=== PATIENT | female | born 1985 | race African-American/Black ===

== ENCOUNTER 2017-09-15 18:00 | Observation (INO) | payer OTHER ==
[2017-09-15] MEDS ORDERED: NS 0.9% 1000 ML* 1,000 ML IV SCH (18:30)
[2017-09-15 18:51] LABS: ABS Basophils 0 10^3/ul (0-0.2); ABS Eosinophils 0.4 10^3/ul (0-0.6); ABS Lymphocytes 1.5 10^3/ul (1.0-4.8); ABS Monocytes 0.3 10^3/ul (0-0.8); ABS Neutrophils 8.4 10^3/ul (1.5-7.7); ABS Nucleated RBC 0.01 10^3/ul; Eosinophil % 3.4 % (0-6); Hematocrit 42 % (35-47); Hemoglobin 13.6 g/dl (12.0-16.0); Lymphocyte % 13.9 % (25-47); Mean Corpuscular HGB Conc 33 g/dl (31-36); Mean Corpuscular Hemoglobin 26 pg (27-31); Mean Corpuscular Volume 80 fL (80-97); Mean Platelet Volume 9 um3 (7.4-10.4); Nucleated Red Blood Cells % 0.1; Platelet Count 216 10^3/ul (150-450); Red Blood Count 5.22 10^6/ul (4.0-5.4); Red Cell Distribution Width 15 % (10.5-15); White Blood Count 10.6 10^3/ul (3.5-10.8)
[2017-09-15 19:00] LABS: EGFR Non-African American 109.7 (>60)
[2017-09-15 19:05] LABS: INR 0.8 (0.77-1.02)
[2017-09-15] MEDS ORDERED: diPHENhydraMINE IV* 50 MG/ML 1 ml VIAL (BENADRYL) IV ONE (19:23)
[2017-09-15] MEDS ORDERED: Butalb/Acetamin/Caff TAB* 1 TAB PO ONE (19:24)
[2017-09-15] MEDS ORDERED: Metoclopramide IV* 5 MG/ML 2 ML VIAL IV SLOW PU ONE (19:24)
--- NOTE | 2017-09-15 21:23 | RAD ---
HISTORY: Headache COMPARISONS: None TECHNIQUE: Multiple contiguous axial CT scans were obtained of the head without intravenous contrast. FINDINGS: HEMORRHAGE/INFARCT: There is no hemorrhage or acute infarct. MASSES/SHIFT: There is no mass or shift. EXTRA-AXIAL SPACES: There are no extra-axial fluid collections. SULCI AND VENTRICLES: The sulci and ventricles are normal in size and position for the patient's stated age. CEREBRUM: There are no focal parenchymal abnormalities. BRAINSTEM: There are no focal parenchymal abnormalities. CEREBELLUM: There are no focal parenchymal abnormalities. VESSELS: The vessels are grossly normal. PARANASAL SINUSES: The paranasal sinuses are clear. ORBITS: The orbits are unremarkable. BONES AND SOFT TISSUE: No bone or soft tissue abnormalities are noted. OTHER: None IMPRESSION: NO ACUTE INTRACRANIAL PATHOLOGY.
--- NOTE | 2017-09-15 21:26 | RAD ---
HISTORY: Neck pain, tingling COMPARISONS: None TECHNIQUE: Multiple contiguous axial CT scans were obtained of the cervical spine without intravenous contrast, with coronal and sagittal multiplanar reformations. FINDINGS: BRAIN: The visualized brain is unremarkable CENTRAL CANAL: Evaluation of the central canal is limited on CT technique; however, there is no obvious canalicular mass or epidural hemorrhage. There is low-attenuation, approximately -300 heterogeneous, that appears to be intradural, extramedullary opposite of C2. ALIGNMENT: There is straightening of the cervical lordosis. VERTEBRAL BODIES: The odontoid process is intact. The atlantoaxial intervals are symmetric. The vertebral bodies are normal in attenuation, without fracture. JOINTS: There is no subluxation or dislocation. MUSCULATURE: Unremarkable INTERVERTEBRAL DISCS: The intervertebral discs are relatively preserved in height. AXIAL IMAGES: C2-C3: There is no osseous neural foraminal narrowing or central canal stenosis. C3-C4: There is no osseous neural foraminal narrowing or central canal stenosis. C4-C5: There is no osseous neural foraminal narrowing or central canal stenosis. C5-C6: There is no osseous neural foraminal narrowing or central canal stenosis. C6-C7: There is no osseous neural foraminal narrowing or central canal stenosis. C7-T1: There is no osseous neural foraminal narrowing or central canal stenosis. SOFT TISSUES: The visualized soft tissues of the neck are unremarkable. The prevertebral fat stripe is preserved. OTHER: None. IMPRESSION: STRAIGHTENING OF THE CERVICAL LORDOSIS. NO OSSEOUS NEURAL FORAMINAL NARROWING OR CENTRAL CANAL STENOSIS. SMALL AMOUNT OF INTRADURAL, EXTRA MEDULLARY LOW-ATTENUATION OPPOSITE OF C2 WHICH MAY REPRESENT A SMALL DURAL LIPOMA VERSUS A SMALL AMOUNT OF EPIDURAL GAS GIVEN THE HISTORY OF RECENT EPIDURAL INSTRUMENTATION.
--- NOTE | 2017-09-15 22:43 | HP ---
H&P (Free Text) History and Physical: Mrs Rausch is a 31F 2days post-vaginal delivery w/ epidural presenting with severe headache. Work up is negative. Suspect epidural etiology. Anesthesia evaluated in AM & opted not to perform a blood patch, but will reconsider in AM.
[2017-09-15] MEDS ORDERED: oxyCODONE/Acetamin 5/325 MG* TAB PO PRN ×2 (22:47)
[2017-09-15] MEDS ORDERED: Ondansetron INJ* 2 MG/ML VIAL IV PRN (22:47)
[2017-09-15] MEDS ORDERED: Metoclopramide IV* 5 MG/ML 2 ML VIAL IV SLOW PU PRN (22:50)
[2017-09-15] MEDS ORDERED: Ketorolac INJ* 30 MG/ML 1 ML VIAL IV PUSH ONE (22:51)
[2017-09-15] MEDS ORDERED: Ketorolac INJ* 30 MG/ML 1 ML VIAL IV PUSH PRN (22:51)
--- NOTE | 2017-09-15 23:05 | ED ---
Mata Oconnell Tiffany, scribed for Ric Jerry on 09/15/17 at 1923 . Headache - HPI Summary HPI Summary: This patient is a 31 year old F [facility] accompanied by male with a chief complaint of headache since two days ago. The patient rates the pain 10/10 in severity. Symptoms aggravated by nothing. Symptoms alleviated by nothing. Patient reports neck pain and fever. Patient denies nausea. The patient gave three days ago in [place], [place], during which she received an epidural. There were no complications during . - History Of Current Complaint Chief Complaint: EDHeadache Stated Complaint: NECK/BACK PAIN Time Seen by Provider: 09/15/17 19:10 Hx Obtained From: Patient Onset/Duration: Started days ago - Two days, Still Present Currently Pain Is: Severe Aggravating Factor: Nothing Allevating Factors: Nothing Associated Signs And Symptoms: Negative - Nausea, Fever, Neck Pain - Allergies/Home Medications Allergies/Adverse Reactions: Allergies Allergy/AdvReac Type Severity Reaction Status Date / Time No Known Allergies Allergy Verified 09/15/17 18:10 Home Medications: Home Medications Iron 1 tab PO DAILY 09/15/17 [History Confirmed 09/15/17] Vitamin TAB* 1 tab PO DAILY 09/15/17 [History Confirmed 09/15/17] Stool Softener 1 tab PO DAILY 09/15/17 [History Confirmed 09/15/17] PMH/Surg Hx/FS Hx/Imm Hx Previously Healthy: No Infectious Disease History: No Infectious Disease History: Denies: Traveled Outside the [place] in Last 30 Days - Social History Alcohol Use: None Hx Substance Use: No Substance Use Type: Reports: None Hx Tobacco Use: No Smoking Status (MU): Never Smoked Tobacco Review of Systems Positive: Fever Negative: Nausea Positive: Other - Neck pain Positive: Headache All Other Systems Reviewed And Are Negative: Yes Physical Exam - Summary Physical Exam Summary: Appearance: Well appearing, no pain distress Skin: warm, dry, reflects adequate perfusion Head/face: normal Eyes: EOMI, CYNTHIA ENT: normal Neck: supple, non-tender Respiratory: CTA, breath sounds present Cardiovascular: RRR, pulses symmetrical Abdomen: non-tender, soft Bowel: present Musculoskeletal: normal, strength/ROM intact Neuro: normal, sensory motor intact, A&Ox3 Triage Information Reviewed: Yes Vital Signs On Initial Exam: Initial Vitals Temp Pulse Resp BP Pulse Ox 97.7 F 89 16 107/62 99 09/15/17 18:07 09/15/17 18:07 09/15/17 18:07 09/15/17 18:07 09/15/17 18:07 Vital Signs Reviewed: Yes - Hernandez Coma Scale Coma Scale Total: 15 Diagnostics - Vital Signs Vital Signs Temp Pulse Resp BP Pulse Ox 09/15/17 18:45 77 21 100/68 100 09/15/17 18:20 81 99 09/15/17 18:18 89/54 09/15/17 18:07 97.7 F 89 16 107/62 99 - Laboratory Lab Results: Lab Results 09/15/17 09/15/17 09/15/17 Range/Units 18:32 18:32 18:32 WBC 10.6 (3.5-10.8) 10^3/ul RBC 5.22 (4.0-5.4) 10^6/ul Hgb 13.6 (12.0-16.0) g/dl Hct 42 (35-47) % MCV 80 (80-97) fL MCH 26 L (27-31) pg MCHC 33 (31-36) g/dl RDW 15 (10.5-15) % Plt Count 216 (150-450) 10^3/ul MPV 9 (7.4-10.4) um3 Neut % (Auto) 79.5 (38-83) % Lymph % (Auto) 13.9 L (25-47) % Socorro % (Auto) 2.8 (1-9) % Eos % (Auto) 3.4 (0-6) % Baso % (Auto) 0.4 (0-2) % Absolute Neuts (auto) 8.4 H (1.5-7.7) 10^3/ul Absolute Lymphs (auto) 1.5 (1.0-4.8) 10^3/ul Absolute Monos (auto) 0.3 (0-0.8) 10^3/ul Absolute Eos (auto) 0.4 (0-0.6) 10^3/ul Absolute Basos (auto) 0 (0-0.2) 10^3/ul Absolute Nucleated RBC 0.01 10^3/ul Nucleated RBC % 0.1 INR (Anticoag Therapy) 0.80 (0.77-1.02) APTT 24.2 L (26.0-36.3) seconds Sodium 136 (133-145) mmol/L Potassium 3.5 (3.5-5.0) mmol/L Chloride 105 (101-111) mmol/L Carbon Dioxide 25 (22-32) mmol/L Anion Gap 6 (2-11) mmol/L BUN 11 (6-24) mg/dL Creatinine 0.64 (0.51-0.95) mg/dL Est GFR ( Amer) 141.1 (>60) Est GFR (Non-Af Amer) 109.7 (>60) BUN/Creatinine Ratio 17.2 (8-20) Glucose 93 (70-100) mg/dL Lactic Acid (0.5-2.0) mmol/L Calcium 8.9 (8.6-10.3) mg/dL Total Bilirubin 0.80 (0.2-1.0) mg/dL AST 85 H (13-39) U/L ALT 105 H (7-52) U/L Alkaline Phosphatase 120 H (34-104) U/L C-Reactive Protein 72.47 H (< 5.00) mg/L Total Protein 6.7 (6.4-8.9) g/dL Albumin 3.3 (3.2-5.2) g/dL Globulin 3.4 (2-4) g/dL Albumin/Globulin Ratio 1.0 (1-3) //17 Range/Units 18:32 WBC (3.5-10.8) 10^3/ul RBC (4.0-5.4) 10^6/ul Hgb (12.0-16.0) g/dl Hct (35-47) % MCV (80-97) fL MCH (27-31) pg MCHC (31-36) g/dl RDW (10.5-15) % Plt Count (150-450) 10^3/ul MPV (7.4-10.4) um3 Neut % (Auto) (38-83) % Lymph % (Auto) (25-47) % Socorro % (Auto) (1-9) % Eos % (Auto) (0-6) % Baso % (Auto) (0-2) % Absolute Neuts (auto) (1.5-7.7) 10^3/ul Absolute Lymphs (auto) (1.0-4.8) 10^3/ul Absolute Monos (auto) (0-0.8) 10^3/ul Absolute Eos (auto) (0-0.6) 10^3/ul Absolute Basos (auto) (0-0.2) 10^3/ul Absolute Nucleated RBC 10^3/ul Nucleated RBC % INR (Anticoag Therapy) (0.77-1.02) APTT (26.0-36.3) seconds Sodium (133-145) mmol/L Potassium (3.5-5.0) mmol/L Chloride (101-111) mmol/L Carbon Dioxide (22-32) mmol/L Anion Gap (2-11) mmol/L BUN (6-24) mg/dL Creatinine (0.51-0.95) mg/dL Est GFR ( Amer) (>60) Est GFR (Non-Af Amer) (>60) BUN/Creatinine Ratio (8-20) Glucose (70-100) mg/dL Lactic Acid 0.8 (0.5-2.0) mmol/L Calcium (8.6-10.3) mg/dL Total Bilirubin (0.2-1.0) mg/dL AST (13-39) U/L ALT (7-52) U/L Alkaline Phosphatase (34-104) U/L C-Reactive Protein (< 5.00) mg/L Total Protein (6.4-8.9) g/dL Albumin (3.2-5.2) g/dL Globulin (2-4) g/dL Albumin/Globulin Ratio (1-3) Result Diagrams: 09/15/17 18:32 09/15/17 18:32 Lab Statement: Any lab studies that have been ordered have been reviewed, and results considered in the medical decision making process. - CT Spine CT Interpretation Completed By: Radiologist - STRAIGHTENING OF THE CERVICAL LORDOSIS. NO OSSEOUS NEURAL FORAMINAL NARROWING OR CENTRAL CANAL STENOSIS. SMALL AMOUNT OF INTRADURAL, EXTRA MEDULLARY LOW-ATTENUATION OPPOSITE OF C2 WHICH MAY REPRESENT A SMALL DURAL LIPOMA VERSUS A SMALL AMOUNT OF EPIDURAL GAS GIVEN THE HISTORY OF RECENT EPIDURAL INSTRUMENTATION. ED physician has reviewed this radiology report. Brain CT Interpretation Completed By: Radiologist - NO ACUTE INTRACRANIAL PATHOLOGY. ED physician has reviewed this radiology report. Re-Evaluation - Re-Evaluation First Eval Re-Evaluation Time: 21:37 Change: Unchanged Comment: The patient says her neck still hurts. We discussed admission plan. Patient is agreeable. Headache Course/Dx - Course Course Of Treatment: This patient is a 31 year old F [facility] accompanied by male with a chief complaint of headache since two days ago. The patient gave three days ago in [place], [place], during which she received an epidural. CT Brain reveals, per radiologist, NO ACUTE INTRACRANIAL PATHOLOGY. CT Spine reveals, per radiologist, STRAIGHTENING OF THE CERVICAL LORDOSIS. NO OSSEOUS NEURAL FORAMINAL NARROWING OR CENTRAL CANAL STENOSIS. SMALL AMOUNT OF INTRADURAL , EXTRA MEDULLARY LOW-ATTENUATION OPPOSITE OF C2 WHICH MAY REPRESENT A SMALL DURAL LIPOMA VERSUS A SMALL AMOUNT OF EPIDURAL GAS GIVEN THE HISTORY OF RECENT EPIDURAL INSTRUMENTATION. In the ED course the patient was given Fioricet, Benadryl and Reglan. We discussed patient care with Dr. Carver (anesthesiology) who said that he will see the patient. Patient will be admitted to Dr. Thomson, hospitalist. The patient is agreeable with this plan. - Diagnoses Differential Diagnosis/HQI/PQRI: Epidural Hematoma, Migraine, Sinus Headache, Tension Headache Provider Diagnoses: Headache, Epidural anesthesia-induced headache during labor and delivery - Physician Notifications Discussed Care Of Patient With: Danis Carver Time Discussed With Above Provider: 19:49 Instructed by Provider To: Other - Dr. Carver (anesthesiology) said that he will come see the patient. At 22:03, I consulted with Dr. Thomson (hospitalist) who agreed to admit the patient. Discharge - Discharge Plan Condition: Fair Disposition: ADMITTED TO [facility] Patient Education Materials: General Headache (ED) Referrals: Forrest Acharya MD [Primary Care Provider] - 3 Days The documentation as recorded by the Mata jorgensen Tiffany accurately reflects the service I personally performed and the decisions made by me, Ric Jerry.
[2017-09-15] MEDS ORDERED: Docusate CAP* 100 MG PO PRN (23:38)
--- NOTE | 2017-09-16 03:02 | HP ---
CC: Dr. Forrest Acharya * MEDICINE HISTORY AND PHYSICAL: DATE OF ADMISSION: 09/15/17 PROVIDER: Courtney Pickering NP ATTENDING PHYSICIAN: Dr. Yandel Thomson * (as dictated by Courtney Pickering NP ) CONSULTING PHYSICIAN: Dr. Carver, Anesthesiology. PRIMARY CARE PROVIDER: Dr. Acharya. CHIEF COMPLAINT: Headache. HISTORY OF PRESENT ILLNESS: Mr. Rausch is a 31-year-old female, who was after delivering at [facility] on 09/12/17. Per the patient and her , the patient went on to labor and delivered at [facility] where she was followed during the course of her . She delivered on , and on 09/13/17, developed a headache with concern for paresthesias. The patient reports that she had some arm numbness as well as ear ringing and facial numbness. She was apparently seen by Neurology at the hospital and recommended to have a blood patch at that time but she had declined with the hope that this will resolve on its own. The patient was eager to go home. Since she has been home, she reports persistent headache that is unrelieved by Percocet. The Percocet actually makes her nauseous and she is also feeling dizzy. She states that the nausea is likely due to the fact that she has not been able to eat anything and so she has been treating her pain with oral medication such as ibuprofen and Percocet and compounding her nausea due to her empty stomach. She still endorses bilateral leg numbness that started with her epidural. She is able to walk. Her headache is persistent and she also endorses neck pain and subjective fevers at home. She does note that she has chronic neck pain in the C4-C5 region, as she says it is secondary to degenerative disk disease. During my evaluation, the patient is lying flat at about 30 degrees, which says is most comfortable for her. She is currently attempting to breastfeed, although she has been unable to do that this evening secondary to being here in the hospital. She does not have a breast pump with her. In the ER, her CBC is unremarkable. She does have some elevated LFTs noted as well as an elevated CRP. The patient had a consult by Anesthesiology at the request of ER physician. Dr. Carver did come to see the patient and recommended a potential blood patch, which could be done tomorrow if the patient is still here. He is also planning to follow up with the patient as an outpatient if she decided to go home. However, given the patient's condition and persistent headache and symptoms, she is opting to stay here in the ED. PAST MEDICAL HISTORY: 1. Recent vaginal delivery. She is 2 para 2 with most recent vaginal delivery on 09/12/17. 2. History of lumbar and cervical radiculopathy per her primary care notes. 3. History of brachial neuritis. 4. History of pain in shoulder and upper arm. 5. Injury of shoulder region. HOME MEDICATIONS: Include: 1. Iron 1 tab daily. 2. vitamin 1 tab daily. 3. Stool softener 1 tab daily. ALLERGIES: No known allergies. FAMILY HISTORY: Reviewed and noncontributory. SOCIAL HISTORY: The patient is . She lives at home with her children. She denies tobacco use, alcohol use, and illicit drug use. Her , Eliud Bucio, is her surrogate decision maker and healthcare proxy. REVIEW OF SYSTEMS: A 12-point review of systems was completed. All pertinent positives and negatives are included in the HPI. All those not mentioned are negative. PHYSICAL EXAMINATION GENERAL APPEARANCE: This is a well-developed female, who appears her stated age , who is lying in the ED stretcher. She appears to be in [id number] distress as evidenced by grimacing. VITAL SIGNS: Temperature 98.4, pulse rate 64, respiratory rate 18, blood pressure 109/71, O2 saturation 100% on room air. HEENT: Head is atraumatic, normocephalic. Face is symmetrical. Pupils are equal, round, and reactive to light. Extraocular movements are intact. Oral mucosa appears moist. There is no oropharyngeal erythema or exudate. NECK: Supple, nontender. The patient has full range of motion through neck. No lymphadenopathy appreciated. LUNGS: Clear to auscultation bilaterally. No accessory muscle use noted. CARDIAC: S1, S2, heart sounds, regular rate and rhythm, no murmurs, rubs, or gallops. The patient has some mild pretibial edema that is trace bilaterally. Distal pulses are 2+ and intact. ABDOMEN: Soft, nontender, nondistended with normoactive bowel sounds. MUSCULOSKELETAL: No clubbing or cyanosis. The patient is able to move all extremities. NEURO: Strength is 5/5 in the upper and lower extremities. No focal deficits noted. Speech is clear. Sensation is intact to light touch to the lower extremities. PSYCH: She is alert and oriented x3. No evidence of anxiety, depression. DIAGNOSTIC STUDIES/LAB DATA: CBC: WBC 10.6, hemoglobin 13.6, hematocrit 42, platelet count 216. PTT 24.2. CMP: Sodium 136, potassium 3.5, chloride 105, carbon dioxide 25, BUN 11, creatinine 0.64, glucose 93, lactic acid 0.8, calcium 8.9. AST 85, ALT 105, alk phos 120. CRP 72.47. Albumin 3.3. CT of the brain showed no acute pathology. CT of the cervical spine shows straightening of the cervical lordosis. No osseous neural foraminal narrowing or central canal stenosis. Small amount of intradural extramedullary low attenuation which may represent a small dural lipoma versus a small amount of epidural gas given the history of recent epidural instrumentation. Old medical records were reviewed. ASSESSMENT AND PLAN: This is a 31-year-old female, who presents today with concern for postdural puncture headache following epidural for recent vaginal delivery. She will be admitted under observation to the medicine floor. Plan is as follows: 1. Postdural puncture headache. Anesthesiology is aware of the patient, has already seen the patient and plans to follow up the patient per the note tomorrow. Plan to have hospital medicine team talk with Anesthesiology in the morning to see if a blood patch will be possible. It appears at this point in time that would be the most likely solution to the patient's head pain. Given that she is and would like to continue , I am hesitant give her heavy narcotics. However, we did discuss that if the need arises to utilize narcotics, so she can continue to pump and then discard the milk if she is pumping shortly after receiving narcotic medication in order to avoid passing the medication to the baby via the breast milk. The patient is in agreement currently to try some Toradol, which I did look up for and note that it is safe for use in . I will continue her on her home Percocet. The patient is attempting to eat some food at this time, which would likely help with her symptoms of nausea following use of the Percocet. She did receive Fioricet, Reglan, and Benadryl here in the ED with little effect. We can continue extra strength Tylenol and I will continue her on metoclopramide and Zofran for nausea, again both of which have been checked against guidelines and have been noted to be safe to use during and . I suspect that the blood patch is likely the most necessary fix for the patient's symptoms at this time. 2. Transaminitis. This may be secondary to recent . Plan to recheck her LFTs tomorrow. We could certainly consider liver ultrasound if the patient shows worsening liver function. At this point in time, she has no hepatomegaly , no jaundice, and no other concerns for liver disease and denies any exposures. We will continue to monitor. 3. with recent delivery on 09/12/17. I did discuss with the patient that if she chooses to breastfeed that she needs to be cognizant of the medications that she is receiving in the hospital and with the help of nursing needs to determine if it is safe to breastfeed if she does take medication that is unsafe for a . Currently, the patient is not ordered any IV narcotics but I did tell her that it will be available should she desire to try IV narcotic medications such as morphine or hydromorphone. At this point in time, we have agreed to hold on these medications that should she take that, the patient is aware that she will need to be cognizant of times until she appropriately excretes the medication from her system. I have also touched base with the maternal-baby unit and they are providing a breast pump for the patient to use while she is here in the hospital. 4. History of cervical and lumbar radiculopathy. The patient has been complaining of paresthesias off and on, which may be secondary to her chronic issues. It is difficult to tease this out at this time. Surely, the blood patch may be helpful and see if this alleviates her symptoms. The patient does admit to having cervical spine issues and pain chronically with some radiculopathy, so some of her previous complaints are being more consistent with her lack of mobility secondary to headache as well as chronic back issues. She should continue outpatient followup with her spinal doctor. 5. FEN. The patient is ordered regular diet and IV fluids. She should continue on her supplementation which includes vitamin, iron. 6. DVT prophylaxis. The patient is ordered SCDs and ERIC hose. We will avoid any anticoagulants in anticipation of needing a blood patch. 7. Code status. The patient is a full code. TIME SPENT: Approximately 60 minutes was spent on this admission with more than half the time spent [id number] with the patient obtaining history and physical, performing physical examination, and reviewing the plan of care. Plan of care was also reviewed with my attending, Dr. Thomson, who is in agreement. COURTNEY PICKERING, [employer] [id number]/CPS #: [id number] ALEKSANDAR
[2017-09-16] MEDS: Acetaminophen TAB* 325 MG PO PRN ×2 (04:02→12:04)
[2017-09-16 05:34] LABS: ABS Basophils 0 10^3/ul (0-0.2); ABS Eosinophils 0.4 10^3/ul (0-0.6); ABS Lymphocytes 1.9 10^3/ul (1.0-4.8); ABS Monocytes 0.4 10^3/ul (0-0.8); ABS Neutrophils 5.1 10^3/ul (1.5-7.7); ABS Nucleated RBC 0.01 10^3/ul; Eosinophil % 4.6 % (0-6); Hematocrit 38 % (35-47); Hemoglobin 12.7 g/dl (12.0-16.0); Lymphocyte % 24.4 % (25-47); Mean Corpuscular HGB Conc 33 g/dl (31-36); Mean Corpuscular Hemoglobin 27 pg (27-31); Mean Corpuscular Volume 80 fL (80-97); Mean Platelet Volume 9 um3 (7.4-10.4); Nucleated Red Blood Cells % 0.1; Platelet Count 209 10^3/ul (150-450); Red Blood Count 4.79 10^6/ul (4.0-5.4); Red Cell Distribution Width 15 % (10.5-15); White Blood Count 7.8 10^3/ul (3.5-10.8)
[2017-09-16 05:55] LABS: EGFR Non-African American 111.7 (>60)
--- NOTE | 2017-09-16 08:37 | PN ---
Subjective Date of Service: 09/16/17 Interval History: Patient seen and examined at bedside. Denies fever, chills, shortness of breath , chest discomfort, N/V/D. Pt states that she was having fevers and chills yesterday, but they have resolved. Pt reports posterior neck pain, that is worse than her baseline. She is able to move her head without difficulty while laying down, but reports it is painful when sitting up. She describes her headache as radiating from her neck up to her head. She declined a blood patch at [facility] because she wanted to go home. She would like to avoid IV pain medications because she is . Family History: Unchanged from Admission Social History: Unchanged from Admission Past Medical History: Unchanged from Admission Objective Active Medications: Acetaminophen (Tylenol Tab*) 975 mg PO Q8H PRN Reason: FEVER/PAIN Docusate Sodium (Colace Cap*) 100 mg PO BID PRN Reason: CONSTIPATION Ferrous Sulfate (Ferrous Sulfate Tab*) 325 mg PO DAILY MAEVE Lactated Ringer's (Lactated Ringers 1000 Ml Bag*) 1,000 mls @ 100 mls/hr IV PER RATE MAEVE Metoclopramide HCl (Reglan Iv*) 10 mg IV SLOW PU Q6H PRN Reason: NAUSEA/ VOMITING Multivitamins ( Vitamin Tab*) 1 tab PO DAILY MAEVE Oxycodone/Acetaminophen (Percocet 5/325 Tab*) 1 tab PO Q4H PRN Reason: PAIN - MILD TO MODERATE Oxycodone/Acetaminophen (Percocet 5/325 Tab*) 2 tab PO Q4H PRN Reason: PAIN - MODERATE TO SEVERE Vital Signs - 8 hr 09/16/17 09/16/17 09/16/17 03:12 07:40 08:00 Temperature 98.3 F 97.6 F Pulse Rate 63 60 Respiratory 16 16 16 Rate Blood Pressure 98/50 92/52 (mmHg) O2 Sat by Pulse 100 98 Oximetry Oxygen Devices in Use Now: None Appearance: NAD, laying in bed Ears/Nose/Mouth/Throat: Mucous Membranes Moist Neck: NL Appearance and Movements; NL JVP Respiratory: Symmetrical Chest Expansion and Respiratory Effort, Clear to Auscultation Cardiovascular: NL Sounds; No Murmurs; No JVD, RRR Abdominal: NL Sounds; No Tenderness; No Distention Extremities: No Edema Skin: No Rash or Ulcers Neurological: Alert and Oriented x 3, NL Muscle Strength and Tone Lines/Tubes/Other Access: Clean, Dry and Intact Peripheral IV - site benign Nutrition: Taking PO's Result Diagrams: 09/16/17 05:22 09/16/17 05:22 Additional Lab and Data: Assess/Plan/Problems-Billing Assessment: Ms. Rausch is a 31 yo female with PMH significant for lumbar and cervical radiculopathy, brachial neuritis, vaginal delivery 09/12 who presented to the emergency room with complaints of a headache. - Patient Problems (1) Headache Code(s): R51 - HEADACHE SNOMED Code(s): 50636359 Comment: - Suspect secondary to recent epidural - Anesthesia will see Pt later today for possible blood patch - Continue pain management (2) Transaminitis Code(s): R74.0 - NONSPEC ELEV OF LEVELS OF TRANSAMNS & LACTIC ACID DEHYDRGNSE SNOMED Code(s): 540144891 Comment: - Improving, suspect secondary to (3) Mother currently breast-feeding Code(s): FEX5298 - SNOMED Code(s): 067524362 Comment: - Monitor medications for compatability with (4) Radiculopathy Code(s): M54.10 - RADICULOPATHY, SITE UNSPECIFIED SNOMED Code(s): 44410666 (5) DVT prophylaxis Code(s): KTH7604 - SNOMED Code(s): 094620236 (6) Full code status Code(s): Z78.9 - OTHER SPECIFIED HEALTH STATUS SNOMED Code(s): 104538153 Status and Disposition: OBV. Discharge to home when medically stable.
[2017-09-16] MEDS ORDERED: Ferrous Sulfate TAB* 325 MG PO SCH (09:00)
[2017-09-16] MEDS ORDERED: Prenatal Vitamin TAB PO SCH (09:00)
[2017-09-16 12:18] VITALS: BP 90/60
--- NOTE | 2017-09-17 10:18 | DS ---
CC: Dr. Forrest Acharya * DISCHARGE SUMMARY: DATE OF ADMISSION: 09/15/17 DATE OF DISCHARGE: 09/16/17 ATTENDING PHYSICIAN: Dr. Rajiv Quintana * (dictated by Indira Vizcarra NP). PRIMARY CARE PROVIDER: Dr. Forrest Acharya. PRIMARY DIAGNOSES: 1. Postdural puncture headache. 2. Transaminitis. 3. with vaginal delivery on 09/12/17. SECONDARY DIAGNOSIS: Cervical and lumbar radiculopathy. CONSULTATIONS WHILE IN THE HOSPITAL: Dr. Carver and Dr. Esteban with Anesthesiology. STUDIES WHILE IN THE HOSPITAL: 1. Brain CT on 09/15/17. Radiologist impression: No acute intracranial pathology. 2. Cervical spine CT on 09/15/17. Radiologist impression: Straightening of the cervical lordosis. No osseous neural foraminal narrowing or central canal stenosis. Small amount of intradural extra medullary low attenuation opposite of C2, which may represent a small dural lipoma versus a small amount of epidural gas given the history of recent epidural instrumentation. PROCEDURES WHILE IN THE HOSPITAL: Status post blood patch by Dr. Esteban on . DISCHARGE MEDICATIONS: Continued home medications: 1. Colace 100 mg oral daily. 2. vitamin 1 tablet oral daily. 3. Iron 1 tablet oral daily. HISTORY OF PRESENT ILLNESS: Ms. Rausch is a 31-year-old female with past medical history significant for lumbar and cervical radiculopathy, brachial neuritis, pain in her shoulder and upper arm and recent vaginal delivery on 09/12/17, who presented to the hospital with complaints of a headache. The patient states on 09/13/17 she developed a headache with concern for paresthesias. She had arm numbness and ear ringing and facial numbness. She was seen by Neurology at the hospital who recommended a blood patch at that time, but the patient declined and hoped that it would resolve on her own and she was eager to get home. The patient had been at home with a persistent headache unrelieved by Percocet. She felt as though the Percocet made her nauseous and dizzy. She had also not been eating very well and was treating her pain with ibuprofen also on an empty stomach. She complained of bilateral leg numbness that started after her epidural, but she is able to walk. She had a persistent headache with neck pain and subjective fevers at home. She has chronic neck pain at C4 to C5 secondary to degenerative disk disease. The patient was comfortable when laying flat. The patient presented to the emergency room for further evaluation of her symptoms. While in the emergency room, the patient had labs with an unremarkable CBC, elevated LFTs, and an elevated CRP. She was consulted by Anesthesia while in the emergency room and it was recommended for a possible blood patch and that it could be performed while the patient was here if she was admitted, or she would be seen outpatient if she decided to go home. Hospitalists were asked to evaluate the patient for admission and she was admitted. While in the hospital, the patient's headache was improved while lying down, worse when sitting up. She continued to have some tinnitus and radiculopathy. She was seen again by Anesthesia today who recommended a blood patch. The patient's tinnitus was improving, it was thought to be secondary to her . She was declining any IV narcotics for her headache. The patient underwent a blood patch with Dr. Esteban and reported that her headache had resolved. She was able to get up and ambulate and was eager to go home. Ms. Rausch is stable for discharge to home. Vital signs are as follows: Temperature 97.5, heart rate 79, respiratory rate 18, O2 sat 100% on room air, blood pressure 90/60. DISCHARGE PLAN: Ms. Rausch will be discharged to home. Activity as tolerated. She will be on a regular diet. At this time, she is headache free. She has a followup appointment with her primary care provider, Dr. Acharya, on September 20 at 11:30. She has been resumed on her regular home medications. She has been asked to return for any fevers or recurrent headaches. This is a summarized report of a complex medical history and hospital stay. For further details, please see the entire medical record. TIME SPENT: Time for this discharge was approximately 50 minutes, greater than half of that was spent [id number] with the patient discussing discharge plans and instructions. CONDITION ON DISCHARGE: Stable. Reviewed by JAGDEEP MYERS 09/18/17 2030 [id number]/[facility] #: [id number] ALEKSANDAR
== END 2017-09-16 15:30 | disposition home or self-care (01) ==
LOC: ED 18:00 → SSU 22:41 → MED 22:41 → UNDOADMOB 22:41
PROVIDERS: ADMIT Hospitalist; ATTEND Hospitalist
DX: O90.89 Other complications of the puerperium, not elsewhere classified (principal); O89.4 Spinal and epidural anesthesia-induced headache during the puerperium; R74.0 Nonspecific elevation of levels of transaminase and lactic acid dehydrogenase [LDH]; M50.321 Other cervical disc degeneration at C4-C5 level
CPT/HCPCS: 36415; 62273; 70450; 72125; 80048; 80053; 80076; 83605; 85025; 85610; 85730; 86140; 96374; 96375; 99284; A9270-GY; G0378; J1200; J1885; J2765